=== PATIENT | male | born 1960 | race Caucasian/White ===

== ENCOUNTER 2016-09-26 12:32 | Day surgery (SDC) | payer BC ==
[2016-09-22 10:39] VITALS: BMI 29.5
[~2016-09-26 12:32] MED LIST: DEXAMETHASONE SOD PHOSPHATE 10 MG/ML 1 ML VIAL IV ONE; HEPARIN SODIUM,PORCINE 5,000 UNIT/ML 1 ML VIAL SQ ONE; HYDROmorphone 1 MG/ML 1 ML SYRINGE IVP PRN; LACTATED RINGERS 1,000 ML IV SCH; MIDAZOLAM 2 MG/2 ML VIAL IV PRN; ONDANSETRON 4 MG/2 ML VIAL IVP ONE; Pre Op ABX Message 1 EACH MISC MISCELLANE ONE; SCOPOLAMINE 1.5MG/72HR PATCH TRANSDERM ONE
[2016-09-26] MEDS ORDERED: LACTATED RINGERS 1,000 ML IV ONE (14:08)
[2016-09-26] MEDS ORDERED: LIDOCAINE 1% INJ 10MG/ML (20 ML MDV) ONE (15:55)
[2016-09-26] MEDS ORDERED: fentaNYL (PF) 50 MCG/ML 2 ML AMP ONE (15:55)
[2016-09-26] MEDS ORDERED: MIDAZOLAM 2 MG/2 ML VIAL ONE (15:55)
[2016-09-26] MEDS ORDERED: LIDOCAINE 1% (PF) 10MG/ML VIAL SQ ONE (15:55)
[2016-09-26] MEDS ORDERED: PROPOFOL 10 MG/ML 20 ML VIAL IV ONE (15:55)
[2016-09-26] MEDS ORDERED: SODIUM CHLORIDE 0.9% 100 ML with ceFAZolin 2,000 MG IV ONE ×2 (16:18)
--- NOTE | 2016-09-26 16:54 | P.OP ---
Date of Procedure: 09/26/16 Preoperative Diagnosis: Multiple soft tissue masses on his arms 3 on the right 2 on the left Postoperative Diagnosis: Bilateral arm lipomas Procedure(s) Performed: Excision of multiple lipomas Anesthesia: MEL Surgeon: Lisa Alcantar Estimated Blood Loss (ml): 5 Pathology: other (Bilateral soft tissue masses from arms) Condition: stable Disposition: PACU Indications for Procedure: Enlarging soft tissue masses bilateral arms Operative Findings: Bilateral soft tissue masses in the arms Description of Procedure: Mr. Tellez is a 55-year-old gentleman with bilateral increasing soft tissue masses in both his arms. He wishes these excised. After the patient presented to the operating room. He underwent induction of general anesthesia. Both arms were prepped and draped in a sterile fashion. The right arm was approached initially. The lesion approximately 2 x 1 cm and another lesion just superior to this 0.5 0.5 cm patient approached. These were the superior lesion on the right arm. Incision was made over these carried down to the palpable abnormality was removed. Hemostasis was attained using electrocautery device. The deep subcutaneous tissues were closed with 3- 0 Vicryl suture. This was followed by closure of the skin with 4-0 Monocryl. Specimen was removed was right arm this was 2 x 1.57 years incision was made over this area of the lesion was after hemostasis was attained using electrocautery device and deep tissues were closed with 3-0 Vicryl suture followed by closure of the skin with 4-0 Monocryl. Final area where there was 2 x 1.5 cm these are inferior fashion distally of the right arm the area incision was made and into by 1.5 cm soft tissue mass was expressed. The deep tissues were closed with 3-0 Vicryl followed by closure of the skin with 4-0 Monocryl. Following this the left arm was approached, lesions of concern were identified. The superior lesion was approximately 2.5 x 2 cm in size. Incision was made in the skin and carried down through skin and subcutaneous tissues. The lesion was removed. The deep tissues were closed using 3-0 Vicryl suture followed by closure of the skin with a 4. The final his family left arm this was 3 x 2 cm. The skin was incised over this and the lesion was expressed. The deep tissues were closed using a 3-0 Vicryl suture followed by closure of the skin with a 4-0 Monocryl. Patient tolerated procedure in stable condition. All instrument and sponge counts were correct at the end of the case.
--- NOTE | 2016-09-26 16:55 | P.DS ---
Providers Attending physician: Lisa Alcantar Primary care physician: Stated None Plan - Discharge Summary New Discharge Prescriptions: HYDROcodone/APAP 5-325MG [[place] 5] 1 - 2 each PO Q4H PRN #20 tab PRN Reason: Pain Discharge Medication List HYDROcodone/APAP 5-325MG [[place] 5] 1 - 2 each PO Q4H PRN #20 tab 09/26/16 [Rx] Follow up Appointment(s)/Referral(s): Lisa Alcantar MD [STAFF PHYSICIAN] - 1 Week Activity/Diet/Wound Care/Special Instructions: Do not drive today Do not drive if taking pain medication Patient may shower after 48 hours Discharge Disposition: HOME SELF-CARE
[2016-09-26 17:04] VITALS: TEMP 98
[2016-09-26 17:07] VITALS: RESP 16
[2016-09-26 18:02] VITALS: BP 120/77; PULSE 73
--- NOTE | 2016-09-29 21:30 | OP ---
DATE OF SERVICE: SURGEON: JAKE ADAME MD BARGE PILOT: PREOPERATIVE DIAGNOSIS: POSTOPERATIVE DIAGNOSIS: OPERATION: ANESTHESIA: ESTIMATED BLOOD LOSS: SPECIMENS REMOVED: COMPLICATIONS: OPERATIVE FINDINGS: Patient had multiple soft tissue masses on his arms, 3 on the right and 2 on the left. On the right arm he had one lesion removed on the upper arm and 2 lesions removed on the lower arm. On the left arm he had an upper and lower arm lesion removed.
== END 2016-09-26 16:09 | disposition home or self-care (01) ==
LOC: OR 12:32
PROVIDERS: ATTEND Surgery
DX: D17.21 Benign lipomatous neoplasm of skin and subcutaneous tissue of right arm (principal); D17.22 Benign lipomatous neoplasm of skin and subcutaneous tissue of left arm; M79.89 Other specified soft tissue disorders; Z80.7 Family history of other malignant neoplasms of lymphoid, hematopoietic and related tissues
CPT/HCPCS: 24075 ×4; 24071; 88304; J2250; J1644; J1100; J2405; J2001 ×2; J3010; J0690; J2704

== ENCOUNTER 2016-10-10 16:14 | Day surgery (SDC) | payer BC ==
[2016-10-06 14:22] VITALS: BMI 30.4
[~2016-10-10 16:14] MED LIST changes: +LIDOCAINE 1% 20 ML VIAL (10MG/ML) FOR IV START INTRADERMA PRN
[2016-10-10 16:51] VITALS: RESP 16; TEMP 97.6
[2016-10-10] MEDS ORDERED: HEPARIN SODIUM,PORCINE 5,000 UNIT/ML 1 ML VIAL SQ ONE (19:06)
[2016-10-10] MEDS ORDERED: fentaNYL (PF) 50 MCG/ML 2 ML AMP ONE (19:37)
[2016-10-10] MEDS ORDERED: MIDAZOLAM 2 MG/2 ML VIAL ONE (19:37)
[2016-10-10] MEDS ORDERED: KETAMINE 10 MG/ML 20 ML VIAL ONE (19:37)
[2016-10-10] MEDS ORDERED: PROPOFOL 10 MG/ML 20 ML VIAL IV ONE (19:37)
[2016-10-10] MEDS ORDERED: LIDOCAINE 1% INJ 10MG/ML (20 ML MDV) SQ ONE (19:49)
--- NOTE | 2016-10-10 20:18 | P.OP ---
Date of Procedure: 10/10/16 Preoperative Diagnosis: Soft tissue masses Right mid and left back Postoperative Diagnosis: Same Procedure(s) Performed: Excision soft tissue masses right mid and left back Anesthesia: MAC Surgeon: Lisa Alcantar Estimated Blood Loss (ml): 25 IV fluids (ml): 300 Pathology: other (Soft tissue masses times.) Condition: stable Disposition: PACU Indications for Procedure: Patient has 3 soft tissue masses on his back which are bothersome to him Operative Findings: Soft tissue masses 3 right mid and left back Description of Procedure: Patient was taken to the operating room and following sedation was placed in the prone position. The back was prepped and draped in a sterile fashion. 3 soft tissue masses were excised the first was in the right lower back was 3 x 1.5 cm. History of the skin and subcutaneous tissue and onto the fascia of the muscle. After this had been excised were assured that hemostasis was attained. Vicryl sutures were placed deep and skin was closed with 4-0 Monocryl. The second lesion was in the mid back was 2 x 2 centimeters in size as to the skin and subcutaneous tissue onto the fascia of the muscle. The deep tissues were closed using a 3-0 Vicryl suture after removing the been well irrigated and hemostasis was attained the skin was closed with 4-0 Monocryl. The laceration was in the (5 x 3 cm in size this risk and subcutaneous tissue down to the fascia of the muscle. After assured that hemostasis was attained. Vicryl deep sutures were placed followed by closure of the skin with 4-0 Monocryl. The patient tolerated procedure in stable condition all instrument and sponge counts were correct at the end of the case. The soft tissue lesions were sent to pathology for evaluation.
--- NOTE | 2016-10-10 20:19 | P.DS ---
Providers Attending physician: Lisa Alcantar Primary care physician: Stated None Plan - Discharge Summary Discharge Medication List HYDROcodone/APAP 5-325MG [[place] 5] 1 - 2 each PO Q4H PRN #20 tab 09/26/16 [Rx] Follow up Appointment(s)/Referral(s): Lisa Alcantar MD [STAFF PHYSICIAN] - 1 Week Activity/Diet/Wound Care/Special Instructions: Do not drive today Do not drive if taking narcotic pain medication Patient may shower after 48 hours Discharge Disposition: HOME SELF-CARE
[2016-10-10 21:23] VITALS: BP 125/76; PULSE 61
== END 2016-10-10 21:44 | disposition home or self-care (01) ==
LOC: OR 16:14
PROVIDERS: ATTEND Surgery
DX: D17.1 Benign lipomatous neoplasm of skin and subcutaneous tissue of trunk (principal); Z72.0 Tobacco use; Z79.891 Long term (current) use of opiate analgesic
CPT/HCPCS: 21933; 21932 ×2; 88304; J2250; J1644; J1100; J2405; J2001; J3010; J2704

== ENCOUNTER 2016-12-19 10:07 | Day surgery (SDC) | payer BC ==
[2016-12-15 11:16] VITALS: BMI 29.9
[~2016-12-19 10:07] MED LIST changes: -LIDOCAINE 1% 20 ML VIAL (10MG/ML) FOR IV START INTRADERMA PRN; -MIDAZOLAM 2 MG/2 ML VIAL IV PRN; -SCOPOLAMINE 1.5MG/72HR PATCH TRANSDERM ONE
[2016-12-19 10:24] VITALS: RESP 16; TEMP 97.7
[2016-12-19] MEDS ORDERED: LIDOCAINE 1% 20 ML VIAL (10MG/ML) FOR IV START INTRADERMA ONE (10:25)
[2016-12-19] MEDS ORDERED: HEPARIN SODIUM,PORCINE 5,000 UNIT/ML 1 ML VIAL SQ ONE (13:15)
--- NOTE | 2016-12-19 13:16 | P.PN ---
Progress Note - Text Patient was noted to have 2 areas of concern one in the mid chest and one in the left chest under the breast area. Both of these will be removed. The patient and family understand risks and benefits and wished to proceed.
[2016-12-19] MEDS ORDERED: fentaNYL (PF) 50 MCG/ML 2 ML AMP ONE (13:20)
[2016-12-19] MEDS ORDERED: MIDAZOLAM 2 MG/2 ML VIAL ONE (13:20)
[2016-12-19] MEDS ORDERED: PROPOFOL 10 MG/ML 20 ML VIAL IV ONE (13:20)
[2016-12-19] MEDS ORDERED: LIDOCAINE 1% INJ 10MG/ML (20 ML MDV) SQ ONE ×2 (13:25)
--- NOTE | 2016-12-19 14:06 | P.OP ---
Date of Procedure: 12/19/16 Preoperative Diagnosis: Soft tissue masses chest wall 2 Postoperative Diagnosis: Same Procedure(s) Performed: Excision of soft tissue mass 2 Anesthesia: MAC Surgeon: Lisa Alcantar Estimated Blood Loss (ml): 2 IV fluids (ml): 450 Pathology: other (Soft tissue mass 2) Condition: stable Disposition: PACU Indications for Procedure: Soft tissue mass anterior chest wall 2 Operative Findings: soft tissue mass anterior chest wall x2 Description of Procedure: Patient was taken to the operating room and following sedation the chest was prepped and draped in a sterile fashion. One percent lidocaine was used to anesthetize the area of concern in the mid chest and in the left lateral chest. The medial area was approached first. A small incision was made and carried down to the palpable abnormality. Wide excision was performed. After assured that hemostasis was attained the incision was closed with a 4-0 Monocryl and a nylon. The area of concern was approximately 1 cm in size. It was through the skin and subcutaneous tissues. An incision was made over the area of concern in the left chest wall. This was carried down to palpable abnormality. Approximately 2 cm lipomatous- like tissue was removed. After being assured that hemostasis was attained the skin was closed using a 4-0 Monocryl followed by a nylon suture. All instrument and sponge counts were correct at the end of the case. Patient tolerated procedure in stable condition.
--- NOTE | 2016-12-19 14:08 | P.DS ---
Providers Attending physician: Lisa Alcantar Primary care physician: Stated None Plan - Discharge Summary New Discharge Prescriptions: HYDROcodone/APAP 5-325MG [[place] 5] 1 - 2 each PO Q4H PRN #20 tab PRN Reason: Pain Discharge Medication List HYDROcodone/APAP 5-325MG [[place] 5] 1 - 2 each PO Q4H PRN #20 tab 12/19/16 [Rx] Follow up Appointment(s)/Referral(s): Lisa Alcantar MD [STAFF PHYSICIAN] - 1 Week Discharge Disposition: HOME SELF-CARE
[2016-12-19 14:29] VITALS: BP 114/74; PULSE 65
== END 2016-12-19 14:51 | disposition home or self-care (01) ==
LOC: OR 10:07
PROVIDERS: ATTEND Surgery
DX: D17.1 Benign lipomatous neoplasm of skin and subcutaneous tissue of trunk (principal); Z79.891 Long term (current) use of opiate analgesic
CPT/HCPCS: 88304; 11401; 11402; J2250; J1644; J1100; J2405; J2001; J3010; J2704

== ENCOUNTER 2017-02-20 14:19 | Day surgery (SDC) | payer BC ==
[2017-02-16 10:58] VITALS: BMI 29.2
[2017-02-20] MEDS ORDERED: HEPARIN SODIUM,PORCINE 5,000 UNIT/ML 1 ML VIAL SQ ONE (14:27)
[2017-02-20] MEDS ORDERED: LIDOCAINE 1% 20 ML VIAL (10MG/ML) FOR IV START INTRADERMA ONE (14:45)
[2017-02-20] MEDS ORDERED: fentaNYL (PF) 50 MCG/ML 2 ML AMP ONE (14:57)
[2017-02-20] MEDS ORDERED: ePHEDrine 50 MG/ML 1 ML AMP ONE (14:57)
[2017-02-20] MEDS ORDERED: PROPOFOL 10 MG/ML 20 ML VIAL IV ONE (14:57)
[2017-02-20] MEDS ORDERED: MIDAZOLAM 2 MG/2 ML VIAL ONE (14:57)
[2017-02-20] MEDS ORDERED: LIDOCAINE 1% INJ 10MG/ML (20 ML MDV) ONE (14:57)
[2017-02-20] MEDS ORDERED: SUCCINYLCHOLINE CHLORIDE 100 MG/5 ML SYR IV ONE (14:57)
[2017-02-20] MEDS ORDERED: SODIUM CHLORIDE 0.9% 100 ML with ceFAZolin 2,000 MG IV ONE ×2 (15:03)
[2017-02-20] MEDS ORDERED: LACTATED RINGERS 1,000 ML IV ONE (15:27)
--- NOTE | 2017-02-20 15:28 | P.OP ---
Date of Procedure: 02/20/17 Preoperative Diagnosis: Left groin nodule Postoperative Diagnosis: Same Procedure(s) Performed: Excision of left groin nodule Implants: Anesthesia: MEL Surgeon: Lisa Alcantar Estimated Blood Loss (ml): 5 IV fluids (ml): 1,000 Pathology: other (Left groin mass) Condition: stable Disposition: PACU Indications for Procedure: Enlarging mass left groin Operative Findings: Left groin mass Description of Procedure: The left groin was prepped and draped in a sterile fashion. An incision was made over the palpable abnormality. The lesion of concern was approximately 2 cm in size. This was carefully excised. After assured that hemostasis was attained the wound was closed in deep layers with 3-0 Vicryl suture followed by closure of the skin with 4-0 Monocryl. The specimen was sent for pathologic evaluation. Patient tolerated procedure in stable condition. All instrument and sponge counts were correct at the end of the case.
--- NOTE | 2017-02-20 15:30 | P.DS ---
Providers Attending physician: Lisa Alcantar Primary care physician: Stated None Plan - Discharge Summary New Discharge Prescriptions: No Action No Known Home Medications [No Known Home Medications] Discharge Medication List No Known Home Medications [No Known Home Medications] 02/16/17 [History] Follow up Appointment(s)/Referral(s): Lisa Alcantar MD [STAFF PHYSICIAN] - 1 Week Activity/Diet/Wound Care/Special Instructions: May shower in [address] today Do not drive if taking narcotic medication Discharge Disposition: HOME SELF-CARE
[2017-02-20 15:59] VITALS: TEMP 98
[2017-02-20 16:02] VITALS: PULSE 74
[2017-02-20 16:15] VITALS: BP 105/65; RESP 18
== END 2017-02-20 16:54 | disposition home or self-care (01) ==
LOC: OR 14:19
PROVIDERS: ATTEND Surgery
DX: D17.79 Benign lipomatous neoplasm of other sites (principal)
CPT/HCPCS: 88304; 27047; J2250; J1644; J1100; J2405; J0690; J2001; J3010; J0330; J2704